=== PATIENT | female | born 1955 | race Caucasian/White ===

== ENCOUNTER 2020-03-06 19:29 | Emergency (ER) | payer OTHER ==
--- OUTSIDE RECORDS SUMMARY | 2020-03-06 19:30 | XMS REPORT | Continuity of Care Document ---
:1955 [address] [facility] t Address [address] [place] [address] Care Team Providers Name Role Phone Aquilino Steele MD Attending Clinician Payers Payer Name Policy Type Policy Number Effective Date Expiration Date S ource Problems This patient has no known problems. Allergies, Adverse Reactions, Alerts This patient has no known allergies or adverse reactions. Medications This patient has no known medications. Procedures This patient has no known procedures. Encounters Start End Encounter Admission Attending Care Care Encounter Source Date/Time Date/Time Type Type Clinicians Facility Department ID 2019-04-22 2019-04-22 ANAID Talavera [id number] 00:00:00 00:00:00 [facility] [id number] Aquilino Fonseca [id number] Ney [phone] [address] Results This patient has no known results.
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
[2020-03-06] MEDS ORDERED: ACETAMINOPHEN 500 MG TAB ONE (22:26)
[2020-03-06] MEDS ORDERED: TETANUS & DIPHTHERIA TOX,ADULT 0.5 ML VIAL ONE (22:26)
[2020-03-06 23:08] VITALS: TEMP 99
[2020-03-06 23:12] VITALS: BP 131/70; O2SAT 99
== END 2020-03-06 22:37 | disposition home or self-care (01) ==
LOC: ER 19:29
DX: S00.83XA Contusion of other part of head, initial encounter (principal); V49.59XA Passenger injured in collision with other motor vehicles in traffic accident, initial encounter; Z23 Encounter for immunization; Z88.0 Allergy status to penicillin; Z88.2 Allergy status to sulfonamides; I10 Essential (primary) hypertension
CPT/HCPCS: 70450; 70486; 71250; 72125; 76377; 90471; 90714; 99284; G0390

== ENCOUNTER 2023-03-23 07:34 | Emergency (ER) | payer OTHER ==
--- OUTSIDE RECORDS SUMMARY | 2023-03-23 07:37 | XMS REPORT | Continuity of Care Document ---
:1955 Author Organization [facility] t Address [address] [place] [address] [place] [id number] Care Team Providers Name Role Phone Rusty Sullivan Primary Care Physician Fay David Attending Clinician Unavailable Nena Miles MD Attending Clinician AWILDA NEVILLE Attending Clinician Unavailable Awilda Neville MD Attending Clinician Doctor Unassigned, [place] Attending Clinician Unavailable Provider, [place] [facility] Attending Clinician Unavailable Kisha Mclaughlin Attending Clinician KISHA OTT Attending Clinician Unavailable FAY WHIPPLE Attending Clinician Unavailable Lab, Adc Fam Pob I Attending Clinician Unavailable NENA MILES Attending Clinician Unavailable Fay David Admitting Clinician Unavailable AWILDA NEVILLE Admitting Clinician Unavailable Awilda Neville MD Admitting Clinician Physician, No Primary or Family Admitting Clinician Unavaila ble Payers Payer Name Policy Type Policy Number Effective Date Expiration Date S ource Problems Condition Condition Condition Status Onset Resolution Last Treating Co mments Source Name Details Category Date Date Treatment Clinician Date Essential Essential Disease Active Uni vers hypertensi hypertensi 4-18 it y of on on 00:00: [place] 00 [facility] Branch Hyperchole Hyperchole Disease Active U grahma sterolemia sterolemia 4-18 it y of 00:00: [place] 00 Medical Branch Fibromyalg Fibromyalg Disease Active U graham ia ia 4-18 ity of 00:00: [place] 00 Medical Branch Anxiety Anxiety Disease Active Univers 4-18 ity of 00:00: [place] 00 Medical Branch 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 4-18 ity of 00:00: [place] 00 Medical Branch Allergies, Adverse Reactions, Alerts Allergy Allergy Status Severity Reaction(s) Onset Inactive Treating Comm ents Source Name Type Date Date Clinician SERTRALI DRUG Active Other-Cmnt Univ ers NE INGREDI 2-08 ity of 00:00: [place] 00 Medical Branch VENLAFAX DRUG Active Other-Cmnt Univ ers INE INGREDI 2-08 ity of 00:00: [place] 00 Medical Branch Sertrali Propensi Active Other - See Severe U nivers ne ty to comments 2-08 headache ity of adverse 00:00: [place] reaction 00 Medical s to Branch drug Venlafax Propensi Active Other - See headache Univers ine ty to comments 2-08 ity of adverse 00:00: [place] reaction 00 Medical s to Branch drug PENICILL Drug Active Rash 2014-08 Univers INS Class 2-04 ity of 00:00: [place] 00 Medical Branch SULFA Drug Active Rash 2014-08 Univers (SULFONA Class 2-04 ity of MIDE 00:00: [place] ANTIBIOT 00 Medical ICS) Branch Penicill Propensi Active Rash 2014-08 Univer s ins ty to 2-04 ity of adverse 00:00: [place] reaction 00 Medical s Branch Sulfa Propensi Active Rash 2014-08 Univers (Sulfona ty to 2-04 ity of mide adverse 00:00: [place] Antibiot reaction 00 Medica l ics) s Branch Social History Social Habit Start Date Stop Date Quantity Comments Source History SDOH [facility] [place] Alcohol Frequency Medical Branch History SDOH [facility] [place] Alcohol Std Drinks Medica l Branch History [facility] [place] Alcohol Binge Medical Bra [facility] Exposure to Not sure [facility] SARS-CoV-2 (event) Medica l Branch Alcohol intake 2021-08-05 2021-08-05 0 /d [facility] 00:00:00 00:00:00 [facility] Branch Alcohol Comment 2015-11-30 2015-11-30 occ [facility] 00:00:00 00:00:00 [facility] Branch Tobacco use and 2015-11-30 2015-11-30 Never used [facility] exposure 00:00:00 00:00:00 [facility] Branch Sex [birth year] [facility] 00:00:00 00:00:00 [facility] Smoking Status Start Date Stop Date Source Never smoker [facility] Medications Ordered Filled Start Stop Current Ordering Indication Dosage Frequency Signature Comments Components Source Medication Medication Date Date Medication? Clinician (SIG) Name Name PANTOPRAZOL Yes [id number] TAKE 1 Univers E 40 mg EC 2-03 TABLET BY ity of tablet 00:00: MOUTH [place] 00 EVERY DAY Medical IN THE Branch MORNING ATORVASTATI Yes [id number] TAKE 1 Univers N 10 mg 2-03 TABLET BY ity of tablet 00:00: MOUTH [place] 00 EVERY DAY [facility] Branch LISINOPRIL Yes [id number] TAKE 1 U nivers 10 mg 2-03 TABLET BY ity of tablet 00:00: MOUTH [place] 00 EVERY DAY Medical Branch vitamin 2020-08 Yes 500ug Take 500 Unive rs B-12 2-23 mcg by ity of (VITAMIN 22:10: mouth [place] B-12) 500 02 daily. Medical mcg tablet [place] water for 2020-08 Yes PRN, Univers irrigation 2-22 Starting ity o f irrigation 15:30: on Wed [place] solution 00 08/04/21 Medical at 0930, Branch Until Discontinu ed, Routine, Intra-op simethicone 2020-08 Yes PRN, Univer s (GAS RELIEF -22 Starting ity of (SIMETHICON 15:30: on Wed [place] E)) 40 00 08/04/21 Medical mg/0.6 mL at 0930, Branch drops Until Discontinu ed, Routine, Intra-op water for 2020-08- No PRN, Univers irrigation -08-04 Starting ity of irrigation 15:30: 18:19 on Wed [place] solution 00 :26 08/04/21 Medical at 0930, Branch Until Mon08/04/21 at 1219, Routine, Intra-op simethicone 2020-08- No PRN, Unive rs (GAS RELIEF 10-05 Starting ity of (SIMETHICON 15:30: 18:19 on Mon Raf as E)) 40 00 :26 08/04/21 Medical mg/0.6 mL at 0930, Branch drops Until Mon08/04/21 at 1219, Routine, Intra-op lactated 2020-08- No 1000mL at 42 Unive rs ringers IV 10-05 mL/hr, ity of infusion 14:15: 14:33 1,000 mL, Raf as 1,000 mL 00 :00 IV Medical Infusion, Branch ONCE, 1 dose, On Mon08/04/21 at 0815, Routine, DSU Pre-op lactated 2020-08- No 1000mL at 42 Unive rs ringers IV 10-05 mL/hr, ity of infusion 14:15: 14:33 1,000 mL, Raf as 1,000 mL 00 :00 IV Medical Infusion, Branch ONCE, 1 dose, On Mon08/04/21 at 0815, Routine, DSU Pre-op calcium 2020-08 Yes Take by Univers citrate/vit 2-22 mouth. ity of sullivan D3 10:19: [place] (CITRACAL + 24 Medical D ORAL) Carbon vitamin 2020-08 Yes 500ug Take 500 Unive rs B-12 2-22 mcg by ity of (VITAMIN 10:19: mouth [place] B-12) 500 24 daily. Medical mcg tablet [place] calcium 2020-08 Yes Take by Univers citrate/vit 2-22 mouth. ity of sullivan D3 10:19: [place] (CITRACAL + 24 Medical D ORAL) [place] vitamin 2020-08 Yes 500ug Take 500 Unive rs B-12 2-22 mcg by ity of (VITAMIN 10:19: mouth [place] B-12) 500 24 daily. Medical mcg tablet [place] calcium 2020-08 Yes Take by Univers citrate/vit 2-22 mouth. ity of sullivan D3 10:19: [place] (CITRACAL + 24 Medical D ORAL) [place] calcium Yes Take by Univers citrate/vit 5-05 mouth. ity of sullivan D3 14:24: [place] (CITRACAL + 21 Medical D ORAL) Branch calcium Yes Take by Univers citrate/vit 5-05 mouth. ity of sullivan D3 09:24: [place] (CITRACAL + 21 Medical D ORAL) Branch azithromyci 0 Yes [id number] 250mg Take 1 Univers n 250 mg 5-05 tablet by ity of tablet 00:00: mouth [place] 00 daily. Medical Take 500 Branch mg day 1, then 250 mg days 2 to 5. azithromyci 0 Yes [id number] 250mg Take 1 Univers n 250 mg 5-05 tablet by ity of tablet 00:00: mouth [place] 00 daily. Medical Take 500 Branch mg day 1, then 250 mg days 2 to 5. azithromyci Yes [id number] 250mg Take 1 Univers n 250 mg 5-05 tablet by ity of tablet 00:00: mouth [place] 00 daily. Medical Take 500 Branch mg day 1, then 250 mg days 2 to 5. azithromyci Yes [id number] 250mg Take 1 Univers n 250 mg 5-05 tablet by ity of tablet 00:00: mouth [place] 00 daily. Medical Take 500 Branch mg day 1, then 250 mg days 2 to 5. azithromyci Yes [id number] 250mg Take 1 Univers n 250 mg 5-05 tablet by ity of tablet 00:00: mouth [place] 00 daily. Medical Take 500 Branch mg day 1, then 250 mg days 2 to 5. pantoprazol Yes [id number] 40mg Take 1 Univers e 40 mg EC 2-12 tablet by ity of tablet 00:00: mouth [place] 00 every Medical morning. Branch lisinopriL 0 Yes [id number] 10mg Take 1 U nivers 10 mg 2-12 tablet by ity of tablet 00:00: mouth [place] 00 daily. Medical Branch atorvastati 0 Yes [id number] 10mg Take 1 Univers n 10 mg 2-12 tablet by ity of tablet 00:00: mouth [place] 00 daily. Medical Branch pantoprazol Yes [id number] 40mg Take 1 Univers e 40 mg EC 2-12 tablet by ity of tablet 00:00: mouth [place] 00 every Medical morning. Branch lisinopriL Yes [id number] 10mg Take 1 U nivers 10 mg 2-12 tablet by ity of tablet 00:00: mouth [place] 00 daily. Medical Branch atorvastati Yes [id number] 10mg Take 1 Univers n 10 mg 2-12 tablet by ity of tablet 00:00: mouth [place] 00 daily. Medical Branch pantoprazol Yes [id number] 40mg Take 1 Univers e 40 mg EC 2-12 tablet by ity of tablet 00:00: mouth [place] 00 every Medical morning. Branch lisinopriL Yes [id number] 10mg Take 1 U nivers 10 mg 2-12 tablet by ity of tablet 00:00: mouth [place] 00 daily. Medical Branch atorvastati Yes [id number] 10mg Take 1 Univers n 10 mg 2-12 tablet by ity of tablet 00:00: mouth [place] 00 daily. Medical Branch pantoprazol Yes [id number] 40mg Take 1 Univers e 40 mg EC 2-12 tablet by ity of tablet 00:00: mouth [place] 00 every Medical morning. Branch lisinopriL Yes [id number] 10mg Take 1 U nivers 10 mg 2-12 tablet by ity of tablet 00:00: mouth [place] 00 daily. Medical Branch atorvastati Yes [id number] 10mg Take 1 Univers n 10 mg 2-12 tablet by ity of tablet 00:00: mouth [place] 00 daily. Medical Branch pantoprazol Yes [id number] 40mg Take 1 Univers e 40 mg EC 2-12 tablet by ity of tablet 00:00: mouth [place] 00 every Medical morning. Branch lisinopriL Yes [id number] 10mg Take 1 U nivers 10 mg 2-12 tablet by ity of tablet 00:00: mouth [place] 00 daily. Medical Branch atorvastati Yes [id number] 10mg Take 1 Univers n 10 mg 2-12 tablet by ity of tablet 00:00: mouth [place] 00 daily. Medical Branch pantoprazol Yes [id number] 40mg Take 1 Univers e 40 mg EC 2-12 tablet by ity of tablet 00:00: mouth [place] 00 every Medical morning. Branch lisinopriL Yes [id number] 10mg Take 1 U nivers 10 mg 2-12 tablet by ity of tablet 00:00: mouth [place] 00 daily. Medical Branch atorvastati Yes [id number] 10mg Take 1 Univers n 10 mg 2-12 tablet by ity of tablet 00:00: mouth [place] 00 daily. Medical Branch pantoprazol Yes [id number] 40mg Take 1 Univers e 40 mg EC 2-12 tablet by ity of tablet 00:00: mouth [place] 00 every Medical morning. Branch lisinopriL Yes [id number] 10mg Take 1 U nivers 10 mg 2-12 tablet by ity of tablet 00:00: mouth [place] 00 daily. Medical Branch atorvastati Yes [id number] 10mg Take 1 Univers n 10 mg 2-12 tablet by ity of tablet 00:00: mouth [place] 00 daily. Medical Branch pantoprazol 2021- No [id number] 40mg Take 1 Univers e 40 mg EC 2-12 02-03 tablet by ity of tablet 00:00: 00:00 mouth [place] 00 :00 every Medical morning. Branch lisinopriL 2021- No [id number] 10mg Take 1 Univers 10 mg 2-12 02-03 tablet by ity of tablet 00:00: 00:00 mouth [place] 00 :00 daily. Medical Branch atorvastati 2021- No [id number] 10mg Take 1 Univers n 10 mg 2-12 02-03 tablet by ity of tablet 00:00: 00:00 mouth [place] 00 :00 daily. Medical Branch LISINOPRIL 2019-08 Yes [id number] TAKE 1 U nivers 10 mg 2-17 TABLET BY ity of tablet 00:00: MOUTH [place] 00 EVERY DAY Medical Branch PANTOPRAZOL 2019-08 Yes [id number] TAKE 1 Univers E 40 mg EC 2-17 TABLET BY ity of tablet 00:00: MOUTH [place] 00 EVERY DAY Medical IN THE Branch MORNING LISINOPRIL 2019-08 Yes [id number] TAKE 1 U nivers 10 mg 2-17 TABLET BY ity of tablet 00:00: MOUTH [place] 00 EVERY DAY Medical Branch PANTOPRAZOL 2019-08 Yes [id number] TAKE 1 Univers E 40 mg EC 2-17 TABLET BY ity of tablet 00:00: MOUTH [place] 00 EVERY DAY Medical IN THE Branch MORNING LISINOPRIL 2019-08 Yes [id number] TAKE 1 U nivers 10 mg 2-17 TABLET BY ity of tablet 00:00: MOUTH [place] 00 EVERY DAY Medical Branch PANTOPRAZOL 2019-08 Yes [id number] TAKE 1 Univers E 40 mg EC 2-17 TABLET BY ity of tablet 00:00: MOUTH [place] 00 EVERY DAY Medical IN THE Carbon MORNING LISINOPRIL 2019-08- No [id number] TAKE 1 Univers 10 mg 2-17 02-12 TABLET BY ity of tablet 00:00: 00:00 MOUTH [place] 00 :00 EVERY DAY Medical Branch PANTOPRAZOL 2019-08- No [id number] TAKE 1 Univers E 40 mg EC 2-17 02-12 TABLET BY ity of tablet 00:00: 00:00 MOUTH [place] 00 :00 EVERY DAY Medical IN THE Carbon MORNING LISINOPRIL 2019-08- No [id number] TAKE 1 Univers 10 mg 2-17 02-12 TABLET BY ity of tablet 00:00: 00:00 MOUTH [place] 00 :00 EVERY DAY Medical Branch PANTOPRAZOL 2019-08- No [id number] TAKE 1 Univers E 40 mg EC 2-17 02-12 TABLET BY ity of tablet 00:00: 00:00 MOUTH [place] 00 :00 EVERY DAY Medical IN THE Carbon MORNING ATORVASTATI 2018-08 Yes [id number] TAKE 1 Univers N 10 mg 1-15 TABLET BY ity of tablet 00:00: MOUTH [place] 00 EVERY DAY Medical Branch ATORVASTATI 2018-08 Yes [id number] TAKE 1 Univers N 10 mg 1-15 TABLET BY ity of tablet 00:00: MOUTH [place] 00 EVERY DAY Medical Branch ATORVASTATI 2018-08 Yes [id number] TAKE 1 Univers N 10 mg 1-15 TABLET BY ity of tablet 00:00: MOUTH [place] 00 EVERY DAY Medical Branch ATORVASTATI 2018-2020- No [id number] TAKE 1 Univers N 10 mg 1-15 02-12 TABLET BY ity of tablet 00:00: 00:00 MOUTH [place] 00 :00 EVERY DAY Medical Branch ATORVASTATI 2018-2020- No [id number] TAKE 1 Univers N 10 mg 1-15 02-12 TABLET BY ity of tablet 00:00: 00:00 MOUTH [place] 00 :00 EVERY DAY Medical Branch azithromyci 2018-08 Yes [id number] 500mg Take 1 Univers n 500 mg 1-11 tablet by ity of tablet 00:00: mouth [place] 00 daily. [facility] 2018-08 Yes [id number] 500mg Take 1 Univers n 500 mg 1-11 tablet by ity of tablet 00:00: mouth [place] 00 daily. [facility] 2018-08 Yes [id number] 500mg Take 1 Univers n 500 mg 1-11 tablet by ity of tablet 00:00: mouth [place] 00 daily. [facility] 2018-08- No [id number] 500mg Take 1 Univers n 500 mg -11 -12 tablet by ity o f tablet 00:00: 00:00 mouth [place] 00 :00 daily. [facility] 2018-08- No [id number] 500mg Take 1 Univers n 500 mg -11 -12 tablet by ity o f tablet 00:00: 00:00 mouth [place] 00 :00 daily. [facility] estradiol 2018-08 Yes [id number] 1mg Take 1 Univers mg tablet 0-04 tablet by ity o f 00:00: mouth [place] 00 daily. [facility] estradiol 2018-08 Yes [id number] 1mg Take 1 Univers mg tablet 0-04 tablet by ity o f 00:00: mouth [place] 00 daily. [facility] estradiol 2018-08 Yes [id number] 1mg Take 1 Univers mg tablet 0-04 tablet by ity o f 00:00: mouth [place] 00 daily. [facility] estradiol 2018-08 Yes [id number] 1mg Take 1 Univers mg tablet 0-04 tablet by ity o f 00:00: mouth [place] 00 daily. [facility] estradiol 2018-08 Yes [id number] 1mg Take 1 Univers mg tablet 0-04 tablet by ity o f 00:00: mouth [place] 00 daily. [facility] estradiol 2018-08 Yes [id number] 1mg Take 1 Univers mg tablet 0-04 tablet by ity o f 00:00: mouth [place] 00 daily. [facility] estradiol 2018-08 Yes [id number] 1mg Take 1 Univers mg tablet 0-04 tablet by ity o f 00:00: mouth [place] 00 daily. [facility] estradiol 2018-08 Yes [id number] 1mg Take 1 Univers mg tablet 0-04 tablet by ity o f 00:00: mouth [place] 00 daily. Medical Branch estradiol 1 2018-08 Yes [id number] 1mg Take 1 Univers mg tablet 0-04 tablet by ity o f 00:00: mouth [place] 00 daily. Medical Branch estradiol 1 2018-08 Yes [id number] 1mg Take 1 Univers mg tablet 0-04 tablet by ity o f 00:00: mouth [place] 00 daily. Medical Branch estradiol 1 2018-08 Yes [id number] 1mg Take 1 Univers mg tablet 0-04 tablet by ity o f 00:00: mouth [place] 00 daily. Medical Branch LISINOPRIL Yes [id number] TAKE 1 U nivers 10 mg 9-10 TABLET BY ity of tablet 00:00: MOUTH [place] 00 EVERY DAY Medical Branch PANTOPRAZOL Yes [id number] TAKE 1 Univers E 40 mg EC 9-10 TABLET BY ity of tablet 00:00: MOUTH [place] 00 EVERY DAY Medical IN THE Branch MORNING LISINOPRIL 2020- No [id number] TAKE 1 Univers 10 mg 9-10 12-17 TABLET BY ity of tablet 00:00: 00:00 MOUTH [place] 00 :00 EVERY DAY Medical Branch PANTOPRAZOL 2020- No [id number] TAKE 1 Univers E 40 mg EC 9-10 12-17 TABLET BY ity of tablet 00:00: 00:00 MOUTH [place] 00 :00 EVERY DAY Medical IN THE Branch MORNING azithromyci Yes [id number] 500mg Take 1 Univers n 500 mg 4-15 tablet by ity of tablet 00:00: mouth [place] 00 daily. Medical Branch albuterol Yes [id number] 2{puff} Inhale 2 Univers 90 4-15 Puffs ity of mcg/actuati 00:00: every 6 Raf as on inhaler 00 (six) Medical hours as Branch needed for Wheezing or Shortness of Breath. estradiol 1 Yes [id number] 1mg Take 1 Univers mg tablet 9-04 tablet by ity o f 00:00: mouth [place] 00 daily. Medical Branch atorvastati Yes [id number] 10mg Take 1 Univers n 10 mg 9-04 tablet by ity of tablet 00:00: mouth [place] 00 daily. Medical Branch pantoprazol 2019- No [id number] 40mg Take 1 Univers e 40 mg EC 9-04 09-09 tablet by ity of tablet 00:00: 00:00 mouth [place] 00 :00 every Medical morning. Carbon lisinopril 2019- No [id number] 10mg Take 1 Univers 10 mg 04-17 tablet by ity of tablet 00:00: 00:00 mouth [place] 00 :00 daily. Medical Branch Immunizations Ordered Filled Immunization Date Status Comments Sour e Immunization Name Name SARS-COV-2 COVID-19 2020-10-31 Completed Unive rsity of PFIZER VACCINE 00:00:00 [facility] SARS-COV-2 COVID-19 2020-10-31 Completed Unive rsity of PFIZER VACCINE 00:00:00 [facility] SARS-COV-2 COVID-19 2020-10-31 Completed Unive rsity of PFIZER VACCINE 00:00:00 [facility] SARS-COV-2 COVID-19 2020-10-31 Completed Unive rsity of PFIZER VACCINE 00:00:00 [facility] SARS-COV-2 COVID-19 2020-10-31 Completed Unive rsity of PFIZER VACCINE 00:00:00 [facility] SARS-COV-2 COVID-19 2020-10-10 Completed Unive rsity of PFIZER VACCINE 00:00:00 [facility] SARS-COV-2 COVID-19 2020-10-10 Completed Unive rsity of PFIZER VACCINE 00:00:00 [facility] SARS-COV-2 COVID-19 2020-10-10 Completed Unive rsity of PFIZER VACCINE 00:00:00 [facility] SARS-COV-2 COVID-19 2020-10-10 Completed Unive rsity of PFIZER VACCINE 00:00:00 [facility] SARS-COV-2 COVID-19 2020-10-10 Completed Unive rsity of PFIZER VACCINE 00:00:00 [facility] Vital Signs Vital Name Observation Time Observation Value Comments Source Systolic blood 2021-08-04 16:00:00 112 mm[Hg] Univer sity of pressure [facility] Diastolic blood 2021-08-04 16:00:00 55 mm[Hg] Unive rsity of pressure [facility] Heart rate 2021-08-04 16:00:00 60 /min [facility] Respiratory rate 2021-08-04 16:00:00 10 /min [facility] [place] [facility] Oxygen saturation in 2021-08-04 16:00:00 99 /min University of Arterial blood by [facility] Pulse oximetry Branch Body temperature 2021-08-04 15:40:00 36.33 Aleja [facility] [place] [facility] Body height 2021-07-22 15:59:00 161.3 cm [facility] [place] [facility] Body weight 2021-07-22 15:59:00 72.6 kg [facility] [place] [facility] BMI 2021-07-22 15:59:00 27.90 kg/m2 [facility] [place] [facility] Systolic blood 2021-08-04 16:00:00 112 mm[Hg] Univer sity of pressure [place] [facility] Diastolic blood 2021-08-04 16:00:00 55 mm[Hg] Unive rsity of pressure [place] [facility] Heart rate 2021-08-04 16:00:00 60 /min [facility] [place] [facility] Respiratory rate 2021-08-04 16:00:00 10 /min [facility] [place] [facility] Oxygen saturation in 2021-08-04 16:00:00 99 /min University of Arterial blood by [facility] Pulse oximetry Branch Body temperature 2021-08-04 15:40:00 36.33 Aleja [facility] [place] [facility] Body height 2021-07-22 15:59:00 161.3 cm [facility] [place] [facility] Body weight 2021-07-22 15:59:00 72.6 kg [facility] [place] [facility] BMI 2021-07-22 15:59:00 27.90 kg/m2 [facility] [place] [facility] Systolic blood 2020-12-16 14:23:00 119 mm[Hg] Univer sity of pressure [place] [facility] Diastolic blood 2020-12-16 14:23:00 65 mm[Hg] Unive rsity of pressure [place] [facility] Heart rate 2020-12-16 14:23:00 88 /min [facility] [place] [facility] Body temperature 2020-12-16 14:23:00 36.78 Aleja [facility] [place] [facility] Respiratory rate 2020-12-16 14:23:00 16 /min [facility] [place] [facility] Body height 2020-12-16 14:23:00 161.3 cm [facility] [place] [facility] Body weight 2020-12-16 14:23:00 72.576 kg [facility] [place] [facility] BMI 2020-12-16 14:23:00 27.90 kg/m2 Universi ty [facility] Oxygen saturation in 2020-12-16 14:23:00 97 /min [facility] Arterial blood by [facility] Pulse oximetry Branch Systolic blood 2020-09-25 17:27:00 143 mm[Hg] Univer sity of pressure [place] [facility] [place] Diastolic blood 2020-09-25 17:27:00 70 mm[Hg] Unive rsity of [facility] Heart rate 2020-09-25 17:27:00 81 /min Universi [facility] Body temperature 2020-09-25 17:27:00 35.94 [facility] height 2020-09-25 17:27:00 162.6 cm Universi [facility] Body weight 2020-09-25 17:27:00 72.576 kg Universi ty [facility] [place] Medical Carbon BMI 2020-09-25 17:27:00 27.46 kg/m2 Universi [facility] Procedures Procedure Date / Time Performing Clinician Source Performed ESOPHAGOGASTRODUODENOSCOPY 2021-08-04 15:14:00 Neli Neville [facility] EGD (ENDO[facility] 2021-08[facility]04 [facility] (ENDO[facility] 2021-08-04 12:48[facility] ASSIGNMENT OF BENEFITS 2021-08-03 14:06:59 Doctor Unassigned, [facility] Name Medical [place] EXTERNAL PROVIDER RECORDS 2021-07-13 06:01:00 Doctor Lowell [facility] [place] [facility] EXTERNAL PROVIDER RECORDS 2021-07-13 06:01:00 Doctor Lowell [facility] [place] [facility] [place] Encounters Start End Encounter Admission Attending Care Care Encounter Source Date/Time Date/Time Type Type Clinicians Facility Department ID 2023-01-26 2023-01-26 Outpatient RA Tariq [id number] [facility] 12:00:00 12:00:00 Fay 78 [facility] 2022-01-20 2022-01-20 Outpatient J[facility] [id number] [facility] 08:00:00 08:00:00 Fay 17 [facility] 2021-09-16 2021-09-16 [facility] [id number] Univers 00:00:00 00:00:00 [facility] [id number] it y of [place] [id number] Raf as PROFESSIO [id number] [address] OFFICE BUILDING ONE 2021-08-04 2021-08-04 Outpatient R [facility] [id number] Univers 08:10:00 10:10:00 AWILDA Aparicio f [facility] 2021-08-04 2021-08-04 [facility] [id number] Univers 08:10:00 10:10:00 Encounter Awilda aparicio [id number] [facility] [id number] [id number] [facility] 071 Branch 2021-08-04 2021-08-[address] [facility] [id number] Univers 09:28:00 10:01:00 Awilda aparicio [id number] ity [facility] [id number] [id number] [facility] 020 Branch 2021-08-03 2021-08-03 Outpatient R [facility] [id number] Univers 08:00:00 08:00:00 AWILDA Aparicio f [facility] 2021-08-03 2021-08-03 Orders Doctor ABURTO [id number] Univers 00:00:00 00:00:00 Only Unassigned, ZOEY [id number] [place] [facility] [id number] Raf as [id number] [address] 2020-12-16 2020-12-16 Urgent Provider, [facility] [id number] Univers 09:04:08 09:54:41 Care Kisha Ott [facility] [id number] ity of [place] [id number] Raf as Professio [id number] [address] Office Building One 2020-12-16 2020-12-16 Outpatient R NAMRATA [facility] [id number] Univers 09:40:00 09:40:00 KISHA ity [facility] 2020-11-12 2020-11-12 Outpatient JAN WHIPPLE [facility] LA00 [id number] [facility] 23:14:47 23:14:47 FAY [facility] 2020-10-31 2020-10-31 Outpatient [facility] [id number] Univers 09:25:00 09:25:00 ity [facility] 2020-10-10 2020-10-10 Outpatient [facility] [id number] Univers 10:20:00 10:20:00 ity [facility] 2020-10-06 2020-10-06 Floor Manager Lab, Monica Fam Cristhian I [facility] [id number] Univers 08:58:16 09:18:16 Visit Nena [facility] [id number] ity of [place] [id number] Raf as Professio [phone] [address] Office Building One 2020-10-06 2020-10-06 Outpatient R [facility] [id number] Univers 09:00:00 09:00:00 ity [facility] 2020-09-25 2020-09-25 Office [facility] [id number] Univers 11:20:02 11:50:02 Visit [facility] [id number] it y of [place] [id number] Raf as Professio [phone] [address] Office [address] [facility] 2020-09-25 2020-09-25 [facility] [id number] Univers 11:15:00 11:15:00 NENA rothman of [facility] 2020-09-18 2020-09-18 [facility] [id number] Univers 00:00:00 00:00:00 [facility] [id number] it y of [place] [id number] Raf as Professio [phone] [address] Office [facility] One 2020-08-26 2020-08-26 [facility] [id number] Univers 00:00:00 00:00:00 [facility] [id number] it y of [place] [id number] Raf as Professio [phone] [address] Office [facility] One 2020-07-30 2020-07-30 [facility] [id number] Univers 00:00:00 00:00:00 [facility] [id number] it y of [place] [id number] Raf as Professio [phone] [address] Office [facility] One 2019-04-22 2019-04-22 [facility] [id number] 00:00:00 00:00:00 [facility] [id number] [place] [id number] Professio [phone] [place] [address] Office [facility] One 2019-04-22 2019-04-22 [facility] [id number] Univers 00:00:00 00:00:00 [facility] [id number] it y of [place] [id number] Raf as Professio [phone] [address] Office [facility] One Results This patient has no known results.
[2023-03-23] MEDS ORDERED: ONDANSETRON 4 MG/2 ML VIAL ONE (08:15)
[2023-03-23] MEDS ORDERED: NA CHLORIDE 0.9% 1,000 ML ONE (08:15)
[2023-03-23 08:34] LABS: Absolute Lymphocytes (CBC) 0.9 K/uL (0.7-4.9); Hematocrit 40.7 % (36.0-45.0); Lymphocytes % 8.7 % (15.3-44.8); MCV 79.6 fL (80-100); MPV 8.3 fL (7.6-11.3); Platelets 256 thou/uL (152-406); RBC Red Blood Cell Count 5.11 M/uL (3.86-4.86)
[2023-03-23 08:56] LABS: Albumin 2.9 g/dL (3.4-5.0); Bilirubin Total 0.7 mg/dL (0.2-1.0); Potassium 2.8 mEq/L (3.5-5.1); Protein, Total 8.1 g/dL (6.4-8.2)
--- NOTE | 2023-03-23 09:20 | RAD REPORT ---
EXAM DESCRIPTION: CTAbdomen Pelvis W Contrast - 03/23/2023 9:05 am CLINICAL HISTORY: Abdominal pain. ABD PAIN COMPARISON: No comparisons TECHNIQUE: Biphasic CT imaging of the abdomen and pelvis was performed with 100 ml non-ionic IV cont rast. All CT scans are performed using dose optimization technique as appropriate and may include automated exposure control or mA/KV adjustment according to patient size. FINDINGS: The lung bases are clear.Mild thickening of the distal esophagus. The liver demonstrates diffuse fatty infiltration. The spleen, pancreas, adrenal glands and kidneys a re within normal limits. No bowel obstruction, free air, free fluid or abscess. There is mild wall thickening involving the re ctosigmoid colon. Diverticulosis coli is seen in the sigmoid colon and throughout the colon of a mode rate severity. The appendix is normal. No evidence of significant lymphadenopathy. Mild lower lumbar spondylosis. IMPRESSION: Mild diffuse fatty liver. Mild rectosigmoid colitis pattern is suspected. Colonic diverticulosis coli, greatest in the sigmoid colon, without diverticulitis.
--- NOTE | 2023-03-23 09:27 | ER ---
Nurse's Notes [facility] Name: Pamella Beck Age: 67 yrs Sex: Female : 1955 Arrival Date: 03/23/2023 Time: 07:34 Bed 14 Private MD: Diagnosis: Diverticulitis, abdominal pain, hypokalemia, hyponatremia, dehydration Presentation: 03/23 07:44 Chief complaint: Patient states: LLQ PAIN WITH FEVER AND N/V/D x4 DAYS. TMAX 102.1. bp Coronavirus screen: diarrhea, fever, headache, nausea. Ebola Screen: No symptoms or risks identified at this time. Initial Sepsis Screen: Does the patient meet any 2 criteria? HR > 90 bpm. No. Patient's initial sepsis screen is negative. Does the patient have a suspected source of infection? No. Patient's initial sepsis screen is negative. Risk Assessment: Do you want to hurt yourself or someone else? Patient reports no desire to harm self or others. Onset of symptoms is unknown. 07:44 Method Of Arrival: Ambulatory bp 07:44 Acuity: CRYSTAL 3 bp Triage Assessment: 07:46 General: Appears distressed, Behavior is cooperative, appropriate for age, anxious. bp Pain: Complains of pain in left lower quadrant. EENT: No deficits noted. Neuro: No deficits noted. Cardiovascular: Rhythm is sinus tachycardia. Respiratory: No deficits noted. GI: Reports diarrhea, nausea, vomiting. : No signs and/or symptoms were reported regarding the genitourinary system. Derm: No deficits noted. Musculoskeletal: No deficits noted. Historical: - Allergies: 07:46 PENICILLINS; bp 07:46 Sulfa (Sulfonamide Antibiotics); bp 07:46 VENLAFAXINE; bp - PMHx: 07:46 Hypertension; sciatica; bp - Immunization history:: Adult Immunizations up to date. - Social history:: Smoking status: Patient denies any tobacco usage or history of. Screenin:[address] [facility] ED Fall Risk Assessment (Adult) History of falling in the last 3 months, vg1 including since admission No falls in past 3 months (0 pts). Abuse screen: Denies threats or abuse. Denies injuries from another. Nutritional screening: No deficits noted. Has had N/V for 3 or more days. Tuberculosis screening: No symptoms or risk factors identified. Assessment: 08:00 General: Appears in no apparent distress. comfortable, Behavior is calm, cooperative. vg1 Pain: Complains of pain in left lower quadrant Pain currently is 1 out of 10 on a pain scale. Pain began x 4 days. Neuro: Level of Consciousness is awake, alert, obeys commands, Oriented to person, place, time, situation. Cardiovascular: Patient's skin is warm and dry. Respiratory: Airway is patent Respiratory effort is even, unlabored. GI: Abdomen is round non-distended, Abdomen is tender to palpation in left lower quadrant Reports diarrhea, nausea, vomiting, since Monday03/19/23. : No signs and/or symptoms were reported regarding the genitourinary system. EENT: No signs and/or symptoms were reported regarding the EENT system. Derm: Skin is pink, warm \T\ dry. Musculoskeletal: Circulation, motion, and sensation intact. 09:10 Reassessment: Patient appears in no apparent distress at this time. No changes from vg1 previously documented assessment. Patient and/or family updated on plan of care and expected duration. Pain level reassessed. Patient is alert, oriented x 3, equal unlabored respirations, skin warm/dry/pink. 09:36 Reassessment: pt up for discharge currently waiting to complete IV antibiotics. vg1 11:57 Reassessment: Patient appears in no apparent distress at this time. Patient and/or vg1 family updated on plan of care and expected duration. Pain level reassessed. Patient is alert, oriented x 3, equal unlabored respirations, skin warm/dry/pink. 12:23 Reassessment: Patient appears in no apparent distress at this time. Patient and/or vg1 family updated on plan of care and expected duration. Pain level reassessed. Patient is alert, oriented x 3, equal unlabored respirations, skin warm/dry/pink. Patient states feeling better. Vital Signs: 07:44 BP 107 / 66; Pulse 115; Resp 20; Temp 99.5; Pulse Ox 93% ; Weight 77.11 kg; Height 5 bp ft. 4 in. ; 08:45 BP 120 / 71; Pulse 94; Resp 16; Pulse Ox 95% on R/A; vg1 09:03 BP 136 / 104; Pulse 126; Resp 16; Pulse Ox 98% on R/A; vg1 09:17 BP 109 / 74; Pulse 90; Resp 16; Pulse Ox 100% on R/A; vg1 10:00 BP 114 / 59; Pulse 84; Resp 16; Pulse Ox 97% on R/A; vg1 11:30 BP 107 / 62; Pulse 82; Resp 16; Pulse Ox 98% on R/A; vg1 07:44 Body Mass Index 29.18 (77.11 kg, 162.56 cm) bp ED Course: 07:38 Patient arrived in ED. mr 07:41 Jack Bocanegra MD is Attending Physician. sp3 07:46 Triage completed. bp 07:46 Arm band placed on. bp 07:49 Tia Braga, RN is Primary Nurse. vg1 08:00 Patient has correct armband on for positive identification. Bed in low position. Call vg1 light in reach. Side rails up X 1. Adult w/ patient. 08:15 Missed attempt(s): 22 gauge in right antecubital area. sm8 08:20 Inserted saline lock: 22 gauge in left wrist, using aseptic technique. vg1 09:07 CT Abd/Pelvis - IV Contrast Only In Process Unspecified. EDMS 09:26 Samantha Sullivan MD is Referral Physician. sp3 12:29 No provider procedures requiring assistance completed. IV discontinued, intact, vg1 bleeding controlled, No redness/swelling at site. Pressure dressing applied. Administered Medications: 08:21 Drug: NS 0.9% IV 1000 ml Route: IV; Rate: 1 bolus; Site: left wrist; vg1 09:30 Follow up: IV Status: Completed infusion; IV Intake: 1000ml vg1 08:21 Drug: Ondansetron IVP 4 mg Route: IVP; Site: left wrist; vg1 09:17 Follow up: Response: No adverse reaction; Marked relief of symptoms vg1 10:32 Drug: Potassium Chloride PO 40 mEq Route: PO; vg1 11:56 Follow up: Response: No adverse reaction vg1 10:35 Drug: NS 0.9% IV 500 ml Route: IV; Rate: bolus; Site: left wrist; vg1 11:14 Follow up: IV Status: Completed infusion; IV Intake: 500ml vg1 10:35 Drug: metroNIDAZOLE IVPB 500 mg Volume: 100 ml; Route: IVPB; Rate: 200 ml/hr; Infused vg1 Over: 30 mins; Site: left wrist; 11:14 Follow up: IV Status: Completed infusion; IV Intake: 100ml vg1 11:14 Drug: Ciprofloxacin IVPB 400 mg Volume: 200 ml; Route: IVPB; Infused Over: 60 mins; vg1 Site: left wrist; 12:22 Follow up: IV Status: Completed infusion; IV Intake: 200ml vg1 Medication: 08:00 VIS not applicable for this client. vg1 Intake: 09:30 IV: 1000ml; Total: 1000ml. vg1 11:14 IV: 100ml; Total: 1100ml. vg1 11:14 IV: 500ml; Total: 1600ml. vg1 12:22 IV: 200ml; Total: 1800ml. vg1 Outcome: : Discharge ordered by . sp3 12:29 Discharged to home ambulatory, with family. vg1 12:29 Condition: good 12:29 Discharge instructions given to patient, family, Instructed on discharge instructions, follow up and referral plans. medication usage, Demonstrated understanding of instructions, follow-up care, medications, Prescriptions given X 2. 12:29 Patient left the ED. vg1 Signatures: Dispatcher [employer] Myriam Orellana Brian, RN RN Tia Freitas RN RN vg1 Jack Bocanegra MD MD sp3 Radha Carney 8
--- NOTE | 2023-03-23 09:27 | EDPHYS ---
Physician Documentation [facility] Name: Pamella Beck Age: 67 yrs Sex: Female : 1955 Arrival Date: 03/23/2023 Time: 07:34 Bed 14 Private MD: ED Physician Jack Bocanegra HPI: 03/23 08:04 This 67 yrs old Female presents to ER via Ambulatory with complaints of Nausea, sp3 Diarrhea, Weakness, Abdominal Pain, Fever. 08:04 67-year-old female with history of hypertension, hysterectomy presents to the ED with a sp3 chief complaint left lower quadrant abdominal pain for 4 days. She has also had diarrhea and mild vomiting and states that she is only been able to hold minimal food down over the last 4 days. She also endorses fever to 102 Tmax yesterday. She denies URI symptoms, neck pain, chest pain, shortness of breath, back pain, dysuria, urinary frequency, constipation, numbness or tingling, bleeding, or any other signs or symptoms on ROS at this time.. Historical: - Allergies: 07:46 PENICILLINS; bp 07:46 Sulfa (Sulfonamide Antibiotics); bp 07:46 VENLAFAXINE; bp - PMHx: 07:46 Hypertension; sciatica; bp - Immunization history:: Adult Immunizations up to date. - Social history:: Smoking status: Patient denies any tobacco usage or history of. ROS: 08:07 Constitutional: Negative for fever, chills, and weight loss, Eyes: Negative for injury, sp3 pain, redness, and discharge, ENT: Negative for injury, pain, and discharge, Neck: Negative for injury, pain, and swelling, Cardiovascular: Negative for chest pain, palpitations, and edema, Respiratory: Negative for shortness of breath, cough, wheezing, and pleuritic chest pain, Back: Negative for injury and pain, MS/Extremity: Negative for injury and deformity, Skin: Negative for injury, rash, and discoloration, Neuro: Negative for headache, weakness, numbness, tingling, and seizure, Psych: Negative for depression, anxiety, suicide ideation, homicidal ideation, and hallucinations, Allergy/Immunology: Negative for hives, rash, and allergies, Endocrine: Negative for neck swelling, polydipsia, polyuria, polyphagia, and marked weight changes. 08:07 All other systems are negative. Exam: 08:07 Constitutional: This is a well developed, well nourished patient who is awake, alert, sp3 and in no acute distress. Head/Face: Normocephalic, atraumatic. Eyes: Pupils equal round and reactive to light, extra-ocular motions intact. Lids and lashes normal. Conjunctiva and sclera are non-icteric and not injected. Cornea within normal limits. Periorbital areas with no swelling, redness, or edema. ENT: Nares patent. No nasal discharge, no septal abnormalities noted. External auditory canals are clear. Oropharynx with no redness, swelling, or masses, exudates, or evidence of obstruction, uvula midline. Mucous membranes moist. Neck: Trachea midline, no thyromegaly or masses palpated, and no cervical lymphadenopathy. Supple, full range of motion without nuchal rigidity, or vertebral point tenderness. No Meningismus. Chest/axilla: Normal chest wall appearance and motion. Nontender with no deformity. No lesions are appreciated. Cardiovascular: Regular rate and rhythm with a normal S1 and S2. No gallops, murmurs, or rubs. Normal PMI, no JVD. No pulse deficits. Respiratory: Lungs have equal breath sounds bilaterally, clear to auscultation and percussion. No rales, rhonchi or wheezes noted. No increased work of breathing, no retractions or nasal flaring. Back: No spinal tenderness. No costovertebral tenderness. Full range of motion. Skin: Warm, dry with normal turgor. Normal color with no rashes, no lesions, and no evidence of cellulitis. MS/ Extremity: Pulses equal, no cyanosis. Neurovascular intact. Full, normal range of motion. Neuro: Awake and alert, GCS 15, oriented to person, place, time, and situation. Cranial nerves II-XII grossly intact. Motor strength 5/5 in all extremities. Sensory grossly intact. Cerebellar exam normal. Normal gait. Psych: Awake, alert, with orientation to person, place and time. Behavior, mood, and affect are within normal limits. 08:07 Abdomen/GI: Left lower quadrant abdominal pain to palpation without peritonitis, rebound or guarding. No pain over McBurney's point and no pain in the right upper quadrant with a negative Disla sign.. Vital Signs: 07:44 BP 107 / 66; Pulse 115; Resp 20; Temp 99.5; Pulse Ox 93% ; Weight 77.11 kg; Height 5 bp ft. 4 in. ; 08:45 BP 120 / 71; Pulse 94; Resp 16; Pulse Ox 95% on R/A; vg1 09:03 BP 136 / 104; Pulse 126; Resp 16; Pulse Ox 98% on R/A; vg1 09:17 BP 109 / 74; Pulse 90; Resp 16; Pulse Ox 100% on R/A; vg1 10:00 BP 114 / 59; Pulse 84; Resp 16; Pulse Ox 97% on R/A; vg1 11:30 BP 107 / 62; Pulse 82; Resp 16; Pulse Ox 98% on R/A; vg1 07:44 Body Mass Index 29.18 (77.11 kg, 162.56 cm) bp MDM: 07:47 Patient medically screened. sp3 08:08 Data reviewed: vital signs, nurses notes, lab test result(s), radiologic studies. ED sp3 course: 67-year-old female with left lower quadrant abdominal pain. Differential diagnosis includes diverticulitis, gastroenteritis, kidney stone, UTI, functional abdominal pain, viral syndrome, among others. I am not highly suspicious for vascular pathology including aortic dissection or aneurysm, STEEL MOLDER pathology given that she has had a hysterectomy, rather critical pathology including sepsis and shock at this time. Patient is mildly tachycardic and workup will include lactate, laboratory values, CT scan of the abdomen and pelvis and treatment will include Zofran IV and normal saline IV. She declined pain medication at this time. Final disposition pending workup patient course with likely discharge of mild diverticulitis or other outpatient pathology is present.. 09:24 ED course: Laboratory values indicate dehydration with hypokalemia and hyponatremia sp3 present. Creatinine is normal. CT scan demonstrates sigmoid diverticulitis in the setting of extensive diverticulosis. Will administer further normal saline, p.o. potassium, Cipro and Flagyl IV, and discharge patient home on oral antibiotics with PCP follow-up with Dr. Sullivan. No admission criteria present and patient is okay with the plan.. 03/23 07:55 Order name: CBC with Diff; Complete Time: :22 sp3 03/23 07:55 Order name: CMP; Complete Time: : sp3 03/23 07:55 Order name: Lipase; Complete Time: 09:22 sp3 03/23 07:55 Order name: Urinalysis w/ reflexes; Complete Time: 09:59 sp3 03/23 07:55 Order name: Lactate w/ 2H reflex if indic.; Complete Time: 09: sp3 03/23 07:55 Order name: CT Abd/Pelvis - IV Contrast Only; Complete Time: 09: sp3 03/23 07:55 Order name: IV Saline Lock; Complete Time: 08: sp3 03/23 07:55 Order name: Labs collected and sent; Complete Time: : sp3 Administered Medications: 08:21 Drug: NS 0.9% IV 1000 ml Route: IV; Rate: 1 bolus; Site: left wrist; vg1 09:30 Follow up: IV Status: Completed infusion; IV Intake: 1000ml vg1 08:21 Drug: Ondansetron IVP 4 mg Route: IVP; Site: left wrist; vg1 09:17 Follow up: Response: No adverse reaction; Marked relief of symptoms vg1 10:32 Drug: Potassium Chloride PO 40 mEq Route: PO; vg1 11:56 Follow up: Response: No adverse reaction vg1 10:35 Drug: NS 0.9% IV 500 ml Route: IV; Rate: bolus; Site: left wrist; vg1 11:14 Follow up: IV Status: Completed infusion; IV Intake: 500ml vg1 10:35 Drug: metroNIDAZOLE IVPB 500 mg Volume: 100 ml; Route: IVPB; Rate: 200 ml/hr; Infused vg1 Over: 30 mins; Site: left wrist; 11:14 Follow up: IV Status: Completed infusion; IV Intake: 100ml vg1 11:14 Drug: Ciprofloxacin IVPB 400 mg Volume: 200 ml; Route: IVPB; Infused Over: 60 mins; vg1 Site: left wrist; 12:22 Follow up: IV Status: Completed infusion; IV Intake: 200ml vg1 Disposition Summary: 03/23/23 09:26 Discharge Ordered Location: Home sp3 Condition: Stable sp3 Diagnosis - Diverticulitis, abdominal pain, hypokalemia, hyponatremia, dehydration sp3 Followup: sp3 - With: Samantha Sullivan MD - When: 5 - 6 days - Reason: Recheck today's complaints Discharge Instructions: - Discharge Summary Sheet sp3 - Diverticulitis sp3 Forms: - Medication Reconciliation Form sp3 - Thank You Letter sp3 - Antibiotic Education sp3 - Prescription Opioid Use sp3 - Patient Portal Instructions sp3 Prescriptions: - Cipro 500 mg Oral Tablet - take 1 tablet by ORAL route every 12 hours for 7 days; 14 tablet; Refills: 0, sp3 Product Selection Permitted - Flagyl 500 mg Oral Tablet - take 1 tablet by ORAL route every 8 hours for 7 days; 21 tablet; Refills: 0, sp3 Product Selection Permitted Signatures: Dispatcher [employer] Trae Ness, RN RN Tai Freitas RN RN vg1 Jack Bocanegra MD MD sp3
[2023-03-23 09:40] LABS: Specific Gravity > 1.030 (1.005-1.030); Urine Bacteria >50 /HPF (<20); Urine Bilirubin NEGATIVE (Negative); Urine Blood 1+ (Negative); Urine Clarity Extremely Turbid (Clear); Urine Color Yellow (Yellow); Urine Glucose NEGATIVE (Negative); Urine Mucus 4+ /HPF (None Seen); Urine Protein 1+ (Negative); Urine Urobilinogen Normal (Normal)
[2023-03-23] MEDS ORDERED: POTASSIUM CL SA 10 MEQ TAB PO ONE (10:12)
[2023-03-23] MEDS ORDERED: NA CHLORIDE 0.9% 500 ML ONE (10:13)
[2023-03-23] MEDS ORDERED: CIPROFLOXACIN 400mg IV 400 MG/200 ML BAG IV ONE (10:13)
[2023-03-23] MEDS ORDERED: METRONIDAZOLE 500mg IVPB 500 MG/100 ML BAG IV ONE (10:13)
[2023-03-23 12:39] VITALS: TEMP 99.5
[2023-03-23 12:57] VITALS: BP 107/62; O2SAT 98
== END 2023-03-23 12:29 | disposition home or self-care (01) ==
LOC: ER 07:34
DX: K57.32 Diverticulitis of large intestine without perforation or abscess without bleeding (principal); E87.6 Hypokalemia; E87.1 Hypo-osmolality and hyponatremia; E86.0 Dehydration; I10 Essential (primary) hypertension; Z88.0 Allergy status to penicillin; Z88.2 Allergy status to sulfonamides; Z88.8 Allergy status to other drugs, medicaments and biological substances
CPT/HCPCS: 96365; 96367; 96361; 85025; 81001; 36415; 83605; 83690; 80053; 74177; 96375; 99284; Q9967; J2405; J0744; J7040; J7030